=== PATIENT | male | born 1995 | race African-American/Black ===

== ENCOUNTER 2025-02-13 16:20 | Emergency (ER) | payer SELFPAY ==
[~2025-02-13] VITALS: Ht 180.3 cm; Wt 74.8 kg
[2025-02-13 17:02] VITALS: TEMP 98.2
[2025-02-13] MEDS ORDERED: FLUORESCEIN SOD(OPTH) 1 MG STRP ONE (17:10)
[2025-02-13] MEDS ORDERED: TETRACAINE HCL 0.5% OPTH SOLN 4 ML BTL ONE (17:10)
[2025-02-13] MEDS ORDERED: CILOXAN3.5 GM OD (18:28)
[2025-02-13] MEDS ORDERED: KETOROLAC TROME10 MG PO (18:28)
[2025-02-13] MEDS: FLUORESCEIN SOD(OPTH) 1 MG STRP OP ONE (18:35)
[2025-02-13] MEDS: TETRACAINE HCL 0.5% OPTH SOLN 4 ML BTL OP ONE (18:35)
[2025-02-13 19:04] VITALS: PULSE 62; RESP 18; O2SAT 100
== END 2025-02-13 18:40 | disposition home or self-care (01) ==
LOC: ER 17:59
DX: H57.11 Ocular pain, right eye (principal); H16.001 Unspecified corneal ulcer, right eye; H53.8 Other visual disturbances; K21.9 Gastro-esophageal reflux disease without esophagitis
CPT/HCPCS: 99282